=== PATIENT | female | born 1980 | race Two or more races ===

== ENCOUNTER 2016-12-11 16:16 | Emergency (ER) | payer OTHER ==
[~2016-12-11] VITALS: Ht 157.5 cm; Wt 61.0 kg
[2016-12-11] MEDS ORDERED: LORazepam 1MG TABLET PO ONE (17:00)
[2016-12-11] MEDS ORDERED: LORazepam 1MG TABLET ONE (17:04)
[2016-12-11 18:07] LABS: HCG UR OBC PASS
[2016-12-11 18:15] VITALS: BP 140/98
== END 2016-12-11 19:23 | disposition home or self-care (01) ==
LOC: ED 19:10
DX: F10.120 Alcohol abuse with intoxication, uncomplicated (principal); F41.1 Generalized anxiety disorder; M13.0 Polyarthritis, unspecified; M19.90 Unspecified osteoarthritis, unspecified site; R06.4 Hyperventilation
CPT/HCPCS: 71010; 81025; 99285

== ENCOUNTER 2018-01-07 09:56 | Day surgery (SDC) | payer BC ==
[~2018-01-07] VITALS: Ht 157.5 cm; Wt 62.1 kg
[~2018-01-07 09:56] MED LIST: CELE100C PO; DEXAMETHASONE 4 MG/ML, 1ML ONE; FENTANYL PF 100 MCG/2ML ONE; MIDAZOLAM 1 MG/ML, 2ML ONE; PROPOFOL 10 MG/ML, 20ML ONE; SUCCINYLCHOLINE 20 MG/ML, 10ML ONE
[2018-01-07] MEDS ORDERED: LACTATED RINGERS 1,000 ML IV SCH (10:27)
[2018-01-07] MEDS ORDERED: ALBUTEROL SULFATE 2.5 MG/3 ML NPPB PRN (10:30)
[2018-01-07] MEDS ORDERED: LABETALOL 5MG/ML, 20ML IV PRN (10:30)
[2018-01-07] MEDS ORDERED: METOPROLOL 1 MG/ML, 5ML IV PRN (10:30)
[2018-01-07] MEDS ORDERED: LORazepam 2 MG/ML, 1ML IVPush PRN (10:30)
[2018-01-07] MEDS ORDERED: GABAPENTIN 300 MG CAPSULE PO ONE (10:30)
[2018-01-07] MEDS ORDERED: EPHEDRINE 50 MG/ML, 1ML IVPush PRN (10:30)
[2018-01-07] MEDS ORDERED: ONDANSETRON ODT 8 MG PO ONE (10:30)
[2018-01-07] MEDS ORDERED: hydrALAzine 20 MG/ML, 1ML IV PRN (10:30)
[2018-01-07] MEDS ORDERED: PROMETHAZINE 25 MG/ML, 1ML IV PRN (10:30)
[2018-01-07] MEDS ORDERED: MORPHINE SULFATE 4 MG/ML, 1ML IVPush PRN (10:30)
[2018-01-07] MEDS ORDERED: MIDAZOLAM 1 MG/ML, 2ML IV PRN (10:30)
[2018-01-07] MEDS ORDERED: PROMETHAZINE 12.5 MG SUPP PR PRN (10:30)
[2018-01-07] MEDS ORDERED: MEPERIDINE/PF 25MG/0.5ML IVPush PRN (10:30)
[2018-01-07] MEDS ORDERED: ACETAMINOPHEN 500 MG TABLET PO ONE (10:30)
[2018-01-07] MEDS ORDERED: BUPIVACAINE/PF-EPI 0.25% 1:200K ONE (10:32)
[2018-01-07] MEDS ORDERED: SILVER NITRATE STICK TP ONE (10:32)
[2018-01-07 10:34] LABS: HCG UR SG 1.022 (1.003-1.030)
[2018-01-07 11:02] VITALS: BP 138/101
[2018-01-07] MEDS ORDERED: SUCCINYLCHOLINE 20 MG/ML, 10ML ONE (12:25)
[2018-01-07] MEDS ORDERED: DEXAMETHASONE 4 MG/ML, 1ML ONE (12:25)
[2018-01-07] MEDS ORDERED: PROPOFOL 10 MG/ML, 20ML ONE (12:25)
[2018-01-07] MEDS ORDERED: FENTANYL PF 100 MCG/2ML ONE (13:31)
[2018-01-07] MEDS ORDERED: OXYcodone 5 MG/5 ML ORAL.SOL UDC ONE ×2 (13:32→14:41)
[2018-01-07] MEDS: FENTANYL PF 100 MCG/2ML IV PRN ×3 (13:33→13:46)
[2018-01-07] MEDS: OXYcodone 5 MG/5 ML ORAL.SOL UDC PO PRN ×2 (13:33→14:42)
[2018-01-07] MEDS ORDERED: hydrALAzine 20 MG/ML, 1ML ONE (13:49)
[2018-01-07] MEDS ORDERED: HYDROmorphone 2 MG/ML, 1ML ONE (13:54)
[2018-01-07] MEDS: HYDROmorphone 1 MG/ML, 1ML IV PRN ×4 (13:55→14:36)
[2018-01-07] MEDS ORDERED: MIDAZOLAM 1 MG/ML, 2ML ONE (14:18)
[2018-01-07] MEDS ORDERED: morphine SULFATE 10 MG/ML, 1ML ONE (15:25)
[2018-01-07] MEDS: MORPHINE SULFATE 4 MG/ML, 1ML IVPush PRN ×2 (15:31→17:07)
[2018-01-07] MEDS ORDERED: KETOROLAC 30 MG/1 ML ONE (17:10)
[2018-01-07] MEDS ORDERED: KETOROLAC 30 MG/1 ML IVPush PRN (17:30)
== END 2018-01-07 18:05 | disposition home or self-care (01) ==
LOC: OUT 09:56
PROVIDERS: ATTEND Obstetrics & Gynecology
DX: Z30.2 Encounter for sterilization (principal); F32.9 Major depressive disorder, single episode, unspecified; F41.9 Anxiety disorder, unspecified; N83.8 Other noninflammatory disorders of ovary, fallopian tube and broad ligament
CPT/HCPCS: 58670; 81025; 88302; J0330; J0360; J1100; J1170; J1885; J2250; J2704; J3010; J7120; Q0162

== ENCOUNTER 2020-12-02 23:19 | Inpatient (IN) | payer BC ==
[~2020-12-02] VITALS: Ht 157.5 cm; Wt 57.3 kg
[~2020-12-02 23:19] MED LIST changes: -DEXAMETHASONE 4 MG/ML, 1ML ONE; -FENTANYL PF 100 MCG/2ML ONE; -MIDAZOLAM 1 MG/ML, 2ML ONE; -PROPOFOL 10 MG/ML, 20ML ONE; -SUCCINYLCHOLINE 20 MG/ML, 10ML ONE
--- NOTE | 2020-12-02 23:50 | NUR ---
KELI RN: PT BIB [facility] AFTER HAVING AN ARGUMENT WITH HER . PT REPORTS N/V. PT ALSO REPORTS SHE HAS ANXIETY AND HAS BEEN FEELING ANXIOUS. SEE SUPERVISOR ON SINUS TACH NOTED. EKG DONE. CALL LIGHT IN PLACE. REPORT GIVEN TO LINDSEY ROGERS.
[2020-12-03] MEDS ORDERED: SODIUM CHLORIDE 0.9% 1,000ML IVBOLUS ONE
[2020-12-03] MEDS ORDERED: LORazepam 2 MG/ML, 1ML IVPush ONE
[2020-12-03] MEDS ORDERED: LORazepam 2 MG/ML, 1ML ONE ×2 (00:08→00:15)
[2020-12-03 00:19] LABS: MEAN CORPUSCULAR HEMOGLOBIN 28.6 pg (27.0-34.8); MEAN CORPUSCULAR HGB CONC 32.7 g/dL (32.4-35.8); MEAN PLATELET VOLUME 7.2 fL (7.4-10.4); PLATELET COUNT 419 x10^3/uL (130-400); RED BLOOD COUNT 5.08 x10^6/uL (3.82-5.3); RED CELL DISTRIBUTION WIDTH 15.7 % (9.6-15.2)
--- NOTE | 2020-12-03 00:30 | NUR ---
DR. MONTEZ INFORMED ABOUT CRITICAL CO2 RESULT
[2020-12-03 00:31] LABS: ALBUMIN 4.1 g/dL (3.4-5.0); CALCIUM 8.3 mg/dL (8.5-10.1); CHLORIDE 96 mmol/L (98-107); CREATININE 1.19 mg/dL (0.55-1.02)
[2020-12-03 00:40] LABS: FREE T4 (FREE THYROXINE) 0.92 ng/dL (0.76-1.46)
[2020-12-03 00:50] LABS: ANION GAP 28 mmol/L (5-15)
[2020-12-03 01:01] LABS: BAND#(MANUAL) 1.59 x10^3/uL; BANDS%(MANUAL) 5 % (0-7); LYMPH#(MANUAL) 2.22 x10^3/uL (1-3.4); LYMPHS% (MANUAL) 7 % (22-44); MONOS#(MANUAL) 0.32 x10^3/uL (0.3-2.7); MONOS% (MANUAL) 1 % (2-9); SEG#(MANUAL) 27.58 x10^3/uL (1.8-6.8); SEGS% (MANUAL) 87 % (42-75)
[2020-12-03 01:02] LABS: ANISOCYTOSIS 1+; POLYCHROMASIA 1+
[2020-12-03 01:03] LABS: <PLATELET ESTIMATE> INCREASED; <PLT MORPHOLOGY> NORMAL PLT MORPH
[2020-12-03 01:52] LABS: ACETONE, SERUM Large (80mg/dL) (Negative)
--- NOTE | 2020-12-03 01:58 | NUR ---
PATIENT HAS COMPLAINTS OF CHEST PAIN AT THIS TIME. MELIDA KEITH AWARE AND TO PLACE ORDERS
[2020-12-03] MEDS ORDERED: D5%-0.45% NACL 1,000 ML IV SCH (02:00)
[2020-12-03] MEDS ORDERED: MAALOX/HYOSCYAMINE/LIDOCAINE 45 ML BTL ONE (02:10)
[2020-12-03] MEDS ORDERED: LORazepam 2 MG/ML, 1ML IV PRN ×5 (02:30)
[2020-12-03] MEDS ORDERED: LORazepam 1MG TABLET PO PRN ×4 (02:30)
[2020-12-03] MEDS ORDERED: MAALOX/HYOSCYAMINE/LIDOCAINE 45 ML BTL PO ONE (02:30)
[2020-12-03] MEDS ORDERED: BACLOFEN 10 MG TABLET PO PRN (02:30)
[2020-12-03] MEDS ORDERED: LORazepam 0.5MG TABLET PO PRN (02:30)
[2020-12-03] MEDS ORDERED: FOLIC ACID 1 MG TABLET PO ONE (02:30)
[2020-12-03] MEDS ORDERED: POTASSIUM CHLORIDE 20 MEQ, MAGNESIUM SULFATE 1 GM, FOLIC ACID 1 MG, THIAMINE 200 MG, MV... IV SCH (02:30)
[2020-12-03] MEDS ORDERED: DOCUSATE 100 MG CAPSULE PO PRN (02:30)
[2020-12-03 04:20] VITALS: BP 145/91
[2020-12-03] MEDS: ENOXAPARIN 40 MG/0.4 ML SQ SCH (04:29)
[2020-12-03 06:51] LABS: MEAN CORPUSCULAR HEMOGLOBIN 28.3 pg (27.0-34.8); MEAN CORPUSCULAR HGB CONC 33.1 g/dL (32.4-35.8); PLATELET COUNT 317 x10^3/uL (130-400); RED BLOOD COUNT 4.81 x10^6/uL (3.82-5.3); RED CELL DISTRIBUTION WIDTH 15.4 % (9.6-15.2)
[2020-12-03 07:16] LABS: ALBUMIN 3.6 g/dL (3.4-5.0); ANION GAP 17 mmol/L (5-15); CHLORIDE 99 mmol/L (98-107)
[2020-12-03 07:24] LABS: ALANINE AMINOTRANSFERASE 370 U/L (12-78); ALKALINE PHOSPHATASE 61 U/L (45-117); TOTAL PROTEIN 7.4 g/dL (6.4-8.2)
[2020-12-03] MEDS ORDERED: LORazepam 2 MG/ML, 1ML IVPush PRN (07:30)
[2020-12-03 08:00] LABS: BAND#(MANUAL) 2.01 x10^3/uL; BANDS%(MANUAL) 11 % (0-7); LYMPH#(MANUAL) 0.92 x10^3/uL (1-3.4); LYMPHS% (MANUAL) 5 % (22-44); MONOS#(MANUAL) 0.18 x10^3/uL (0.3-2.7); MONOS% (MANUAL) 1 % (2-9); SEG#(MANUAL) 15.19 x10^3/uL (1.8-6.8); SEGS% (MANUAL) 83 % (42-75)
[2020-12-03 08:01] LABS: <PLATELET ESTIMATE> ADEQUATE; <PLT MORPHOLOGY> NORMAL PLT MORPH; ANISOCYTOSIS 1+; POLYCHROMASIA 1+
[2020-12-03] MEDS: MULTIVITAMINS/MINERALS TABLET PO SCH ×2 (08:01→10:30)
[2020-12-03 08:40] VITALS: BP 146/94
[2020-12-03] MEDS: ONDANSETRON 2MG/ML, 2ML IV PRN (10:30)
[2020-12-03] MEDS: DIAZEPAM 5 MG/ML, 2ML IV SCH ×2 (10:30→18:11)
[2020-12-03] MEDS ORDERED: SODIUM PHOSPHATE 20 MMOL in SODIUM CHLORIDE 0.9% 500 ML IV ONE (13:00)
[2020-12-03 15:59] VITALS: BP 135/86
[2020-12-03 20:29] VITALS: BP 140/92
[2020-12-03] MEDS: SODIUM CHLORIDE 0.9% 1,000 ML IV SCH (21:17)
[2020-12-03] MEDS: CALCIUM CARBONATE 500 MG TAB.CHEW PO PRN (21:27)
[2020-12-04 01:11] VITALS: BP 134/93
[2020-12-04] MEDS: SODIUM CHLORIDE 0.9% 1,000 ML IV SCH ×2 (04:49→16:55)
[2020-12-04] MEDS: ENOXAPARIN 40 MG/0.4 ML SQ SCH (04:49)
[2020-12-04] MEDS: DIAZEPAM 5 MG/ML, 2ML IV SCH ×3 (05:06→11:53)
[2020-12-04] MEDS: CALCIUM CARBONATE 500 MG TAB.CHEW PO PRN (05:08)
[2020-12-04] MEDS: POTASSIUM CHLORIDE 20 MEQ, MAGNESIUM SULFATE 1 GM, FOLIC ACID 1 MG, THIAMINE 200 MG, MV... IV SCH (05:15)
[2020-12-04 05:58] LABS: BASOPHILS % (AUTO) 0 % (0-1); EOSINOPHILS % (AUTO) 1 % (1-7); LYMPHOCYTES % (AUTO) 20 % (22-44); MEAN CORPUSCULAR HEMOGLOBIN 28.2 pg (27.0-34.8); MEAN CORPUSCULAR HGB CONC 32.9 g/dL (32.4-35.8); MEAN PLATELET VOLUME 7.5 fL (7.4-10.4); MONOCYTES % (AUTO) 1 % (2-9); NEUTROPHILS % (AUTO) 78 % (42-75); PLATELET COUNT 180 x10^3/uL (130-400); RED BLOOD COUNT 4.29 x10^6/uL (3.82-5.3); RED CELL DISTRIBUTION WIDTH 15.4 % (9.6-15.2)
[2020-12-04 06:12] LABS: CHLORIDE 105 mmol/L (98-107)
[2020-12-04 06:26] LABS: ALANINE AMINOTRANSFERASE 299 U/L (12-78); ALBUMIN 3.1 g/dL (3.4-5.0); ALKALINE PHOSPHATASE 52 U/L (45-117); ANION GAP 7 mmol/L (5-15); BILIRUBIN,TOTAL 0.8 mg/dL (0.2-1.0); CALCIUM 8.3 mg/dL (8.5-10.1); CREATININE 0.49 mg/dL (0.55-1.02); TOTAL PROTEIN 6.5 g/dL (6.4-8.2)
[2020-12-04 08:00] VITALS: BP 149/84
[2020-12-04] MEDS: MULTIVITAMINS/MINERALS TABLET PO SCH (10:00)
[2020-12-04 14:06] VITALS: BP 134/102
[2020-12-04] MEDS: PANTOPRAZOLE 40 MG IV IVPush SCH (16:54)
[2020-12-04] MEDS: POTASSIUM CHLORIDE 20 MEQ TAB.ER.PRT PO SCH (17:05)
[2020-12-04] MEDS: ONDANSETRON 2MG/ML, 2ML IV PRN (17:05)
[2020-12-04 19:04] VITALS: BP 138/92
[2020-12-04] MEDS ORDERED: DIAZEPAM 5 MG/ML, 2ML IV SCH (21:00)
[2020-12-05 00:29] VITALS: BP 138/99
[2020-12-05] MEDS: SODIUM CHLORIDE 0.9% 1,000 ML IV SCH (01:07)
[2020-12-05] MEDS: PANTOPRAZOLE 40 MG IV IVPush SCH (02:28)
[2020-12-05] MEDS: ENOXAPARIN 40 MG/0.4 ML SQ SCH (05:00)
[2020-12-05] MEDS: POTASSIUM CHLORIDE 20 MEQ, MAGNESIUM SULFATE 1 GM, FOLIC ACID 1 MG, THIAMINE 200 MG, MV... IV SCH (05:55)
[2020-12-05 06:55] VITALS: BP 126/80
[2020-12-05] MEDS: MULTIVITAMINS/MINERALS TABLET PO SCH (09:06)
[2020-12-05] MEDS: POTASSIUM CHLORIDE 20 MEQ TAB.ER.PRT PO SCH (09:06)
[2020-12-05 09:11] LABS: BASOPHILS % (AUTO) 1 % (0-1); EOSINOPHILS % (AUTO) 2 % (1-7); LYMPHOCYTES % (AUTO) 29 % (22-44); MEAN CORPUSCULAR HEMOGLOBIN 28.8 pg (27.0-34.8); MEAN CORPUSCULAR HGB CONC 33.5 g/dL (32.4-35.8); MEAN PLATELET VOLUME 8.5 fL (7.4-10.4); MONOCYTES % (AUTO) 2 % (2-9); NEUTROPHILS % (AUTO) 67 % (42-75); PLATELET COUNT 153 x10^3/uL (130-400); RED BLOOD COUNT 4.57 x10^6/uL (3.82-5.3); RED CELL DISTRIBUTION WIDTH 15.5 % (9.6-15.2)
[2020-12-05 09:20] LABS: ALANINE AMINOTRANSFERASE 262 U/L (12-78); ALBUMIN 3.4 g/dL (3.4-5.0); CALCIUM 8.5 mg/dL (8.5-10.1); CHLORIDE 106 mmol/L (98-107); CREATININE 0.54 mg/dL (0.55-1.02)
[2020-12-05 09:36] LABS: ANION GAP 7 mmol/L (5-15)
[2020-12-05 09:38] LABS: ALKALINE PHOSPHATASE 58 U/L (45-117); TOTAL PROTEIN 6.7 g/dL (6.4-8.2)
[2020-12-05] MEDS ORDERED: PANT20TA2 PO (11:23)
== END 2020-12-05 12:20 | disposition home or self-care (01) | DRG 432 ==
LOC: ED 12-03 01:15 → EDIP 12-03 02:47 → 4EST 12-03 04:00
PROVIDERS: ADMIT Internal Medicine; ATTEND Hospitalist
DX: K70.10 Alcoholic hepatitis without ascites (principal); N17.0 Acute kidney failure with tubular necrosis; K85.90 Acute pancreatitis without necrosis or infection, unspecified; E87.2 Acidosis; F10.139 Alcohol abuse with withdrawal, unspecified; F41.0 Panic disorder [episodic paroxysmal anxiety]; F41.1 Generalized anxiety disorder; K21.00 Gastro-esophageal reflux disease with esophagitis, without bleeding; K29.70 Gastritis, unspecified, without bleeding; Y90.9 Presence of alcohol in blood, level not specified
CPT/HCPCS: 36415; 96374; 99285; J7121; 80048; 80053; 80320; 82010; 82040; 83605; 83690; 83735; 84100; 84439; 84443; 85025; 93005; G0378; J1650; J2405; J3360; J3411; J3475; J3480; C9113; G0480; J2060; J7030; J7040